=== PATIENT | female | born 1995 ===

== ENCOUNTER → 2017-03-29 | Outpatient (REF) | LOC: WSOH 13:53 → WSPT 15:30 | DX: Z01.89 Encounter for other specified special examinations (principal) ==

== ENCOUNTER → 2017-03-31 | Outpatient (REF) | LOC: WSOH 11:30 | DX: Z02.89 Encounter for other administrative examinations (principal) ==

== ENCOUNTER → 2017-04-05 | Outpatient (REF) | LOC: WSOH 09:36 | DX: Z01.89 Encounter for other specified special examinations (principal) ==

== ENCOUNTER → 2017-06-02 | Outpatient (REF) | LOC: WSOH 14:24 | DX: Z01.84 Encounter for antibody response examination (principal) ==

== ENCOUNTER → 2017-07-08 | Outpatient (REF) | LOC: WSOH 17:00 | DX: Z02.89 Encounter for other administrative examinations (principal) ==